=== PATIENT | male | born 1945 | race Caucasian/White ===

== ENCOUNTER 2018-10-23 07:49 | Inpatient (IN) ==
[2018-10-23] MEDS ORDERED: SODIUM CHLORIDE 0.9% 2,250 ML IV ONE (08:11)
[2018-10-23 08:54] LABS: ABG Base Excess -8.1 MMOL/L (-2.5-2.5); ABG Oxygen Saturation 98.2 % (95-100); ABG PCO2 47.6 MM HG (35-48); ABG PH 7.229 (7.35-7.45); ABG TCO2 17.7 MMOL/L (23-27); Allen Test Positive
[2018-10-23 09:01] LABS: Basophils % 0.2 % (0.0-0.8); Hematocrit 48.5 VOL% (42.0-52.0); Hemoglobin 14.9 GM/DL (14.0-18.0); Immature Granulocytes % 0.9 %; Immature Granulocytes Absolute 0.12 #; Lymphocytes # 0.5 10*3/uL (1.4-4.0); Lymphocytes % 3.6 % (21.2-54.2); Mean Corpuscular HGB Conc 30.7 GM/DL (32-36); Mean Corpuscular Volume 94.7 FL (87-102); Mean Platelet Volume 13.6 FL (9.6-12.0); Monocytes % 3.7 % (1.7-12.7); Neutrophils % 91.6 % (38.7-73.9); Platelet Count 121 T/CUMM (130-400); Red Blood Count 5.12 MC/CUMM (3.8-5.5); Red Cell Distribution Width 15.1 % (9.3-17.3); White Blood Count 12.7 T/CUMM (4-12)
[2018-10-23 09:05] LABS: Apearance,Urine CLOUDY (Clear); Bacteria,Urine Occasional /HPF (Few); Bilirubin,Urine Negative (Negative); Blood, Urine Small mg/dL (Negative); Glucose,Urine (UA) Negative (Negative); Hyaline Casts,Urine 1 /LPF (0-3); Ketones,Urine 5 mg/dL (Negative); Mucus,Urine Occasional /LPF (Occasional); Nitrite,Urine Negative (Negative); Protein,Urine 100 MG/DL; RBC,Urine 8 /HPF (0-4); Urine Color Amber (Yellow); Urine Urobilinogen < 2.0 EU/DL (0.2-1.0); WBC,Urine 6 /HPF (0-6)
[2018-10-23 09:11] LABS: INR 1.2; PT Patient Result 13.4 SECS; Partial Thromboplastin Time 34.5 SECS (0-40)
[2018-10-23 09:21] LABS: Alanine Aminotransferase 23 U/L (16-61); Albumin 2.5 G/DL (3.4-5.0); Alkaline Phosphatase 38 U/L (45-117); Aspartate Amino Transferase 26 U/L (0-37); Blood Urea Nitrogen 51 MG/DL (7-18); Calcium 8.5 MG/DL (8.5-10.1); Glucose 76 MG/DL (74-106); Osmolality,Calculated 300.7 MOS/KG (273-304); Total Protein 6.1 G/DL (6.4-8.3)
[2018-10-23 09:25] LABS: Band Neutrophils 15 % (0-10); Burr Cells Slight; Hypochromasia 1+; Lymphocytes 5 % (20-55); Myelocytes 1 %; Ovalocytes Slight; Platelet Estimate Decreased; Segmented Neutrophils 76 % (50-85); Total Cells Counted 100
[2018-10-23] MEDS ORDERED: NOREPINEPHRINE 4 MG/4 ML VIAL IV ONE (09:28)
[2018-10-23] MEDS ORDERED: HYDROCORTISONE 100 MG VIAL IV STA (09:37)
[2018-10-23] MEDS: NOREPINEPHRINE 8 MG in SODIUM CHLORIDE 0.9% 242 ML IV PRN ×2 (09:38→21:52)
[2018-10-23] MEDS: PIPERACILLIN/TAZOBACTAM 3,375 MG in SODIUM CHLORIDE 0.9% 100 ML IV SCH ×2 (09:38→16:43)
[2018-10-23] MEDS ORDERED: NICOTINE 21 MG/24 HR PATCH TRANSDERM PRN (09:51)
[2018-10-23] MEDS ORDERED: ONDANSETRON 4 MG/2 ML VIAL IV PRN (09:51)
[2018-10-23] MEDS ORDERED: ACETAMINOPHEN 325 MG TABLET PO PRN (09:51)
[2018-10-23] MEDS ORDERED: ALBUTEROL 2.5 MG/3 ML NEB RESP TX PRN (09:51)
[2018-10-23] MEDS ORDERED: PROMETHAZINE 25 MG/1 ML VIAL IM PRN (09:51)
[2018-10-23] MEDS ORDERED: PIPERACILLIN/TAZOBACTAM 3,375 MG in SODIUM CHLORIDE 0.9% 100 ML IV SCH (10:00)
[2018-10-23] MEDS ORDERED: SODIUM CHLOR 0.9% KCL 40 MEQ 40 MEQ/1,000 ML BAG IV SCH (10:00)
[2018-10-23] MEDS ORDERED: PANTOPRAZOLE 40 MG VIAL IV SCH (10:00)
[2018-10-23] MEDS: POTASSIUM CHLORIDE RIDER 10 MEQ in PREMIX 1 EACH IV PRN ×5 (12:09→20:05)
[2018-10-23] MEDS: SODIUM BICARB INJ 100 MEQ in DEXTROSE 5% 1,000 ML IV SCH ×3 (12:18→19:52)
[2018-10-23] MEDS: FAMOTIDINE 20 MG/2 ML VIAL IV SCH ×2 (12:26→13:27)
[2018-10-23 12:38] LABS: Calcium 8.1 MG/DL (8.5-10.1); Osmolality,Calculated 302.6 MOS/KG (273-304)
[2018-10-23] MEDS ORDERED: HEPARIN/NACL 0.9% 2 UNITS/ML 500 ML IV ONE (13:23)
[2018-10-23] MEDS: HYDROCORTISONE 100 MG VIAL IV SCH ×2 (13:27→22:23)
[2018-10-23 14:19] LABS: ABG Base Excess -6.6 MMOL/L (-2.5-2.5); ABG HCO3 19.7 MMOL/L (20-26); ABG PCO2 42.5 MM HG (35-48); ABG PH 7.285 (7.35-7.45); ABG TCO2 21.1 MMOL/L (23-27)
[2018-10-23 20:49] LABS: Calcium 7.8 MG/DL (8.5-10.1); Osmolality,Calculated 302.1 MOS/KG (273-304)
[2018-10-23 21:20] LABS: ABG Base Excess -4.8 MMOL/L (-2.5-2.5); ABG HCO3 20.6 MMOL/L (20-26); ABG PCO2 44.2 MM HG (35-48); ABG PH 7.301 (7.35-7.45); Basophils # 0.1 10*3/uL (0.0-0.2); Basophils % 0.6 % (0.0-0.8); Hematocrit 43.7 VOL% (42.0-52.0); Hemoglobin 13.8 GM/DL (14.0-18.0); Immature Granulocytes % 0.6 %; Immature Granulocytes Absolute 0.05 #; Lymphocytes # 0.4 10*3/uL (1.4-4.0); Lymphocytes % 4.3 % (21.2-54.2); Mean Corpuscular HGB Conc 31.6 GM/DL (32-36); Mean Corpuscular Volume 92.4 FL (87-102); Mean Platelet Volume 12.7 FL (9.6-12.0); Monocytes % 2.7 % (1.7-12.7); Neutrophils % 91.8 % (38.7-73.9); Platelet Count 142 T/CUMM (130-400); Red Blood Count 4.73 MC/CUMM (3.8-5.5); Red Cell Distribution Width 15.1 % (9.3-17.3); White Blood Count 8.1 T/CUMM (4-12)
[2018-10-23 22:16] LABS: Anisocytosis Slight; Band Neutrophils 1 % (0-10); Burr Cells Few; Lymphocytes 4 % (20-55); Microcytosis Slight; Segmented Neutrophils 94 % (50-85); Total Cells Counted 100
[2018-10-23 22:17] LABS: Ovalocytes Slight; Platelet Estimate Normal
[2018-10-23] MEDS: ENOXAPARIN 30 MG/0.3 ML SYRINGE SUBCUT SCH (22:22)
[2018-10-23] MEDS ORDERED: SODIUM ACETATE 150 MEQ in STERILE WATER INJ 1,000 ML IV ONE (22:30)
[2018-10-24] MEDS: PIPERACILLIN/TAZOBACTAM 3,375 MG in SODIUM CHLORIDE 0.9% 100 ML IV SCH ×3 (00:08→17:44)
[2018-10-24] MEDS ORDERED: MORPHINE 4 MG/1 ML VIAL IV ONE (00:40)
[2018-10-24] MEDS: SODIUM BICARB INJ 100 MEQ in DEXTROSE 5% 1,000 ML IV SCH ×3 (03:11→17:52)
[2018-10-24 04:32] LABS: ABG Base Excess 0.5 MMOL/L (-2.5-2.5); ABG HCO3 24.9 MMOL/L (20-26); ABG Oxygen Saturation 99.2 % (95-100); ABG PCO2 37.9 MM HG (35-48); ABG PH 7.423 (7.35-7.45); ABG TCO2 21.3 MMOL/L (23-27)
[2018-10-24 04:43] LABS: Basophils # 0.1 10*3/uL (0.0-0.2); Basophils % 0.5 % (0.0-0.8); Hematocrit 41.2 VOL% (42.0-52.0); Hemoglobin 13.7 GM/DL (14.0-18.0); Immature Granulocytes % 0.5 %; Immature Granulocytes Absolute 0.06 #; Lymphocytes # 0.3 10*3/uL (1.4-4.0); Mean Corpuscular HGB Conc 33.3 GM/DL (32-36); Mean Corpuscular Volume 89.2 FL (87-102); Mean Platelet Volume 13.3 FL (9.6-12.0); Monocytes % 2.4 % (1.7-12.7); Neutrophils % 93.6 % (38.7-73.9); Platelet Count 146 T/CUMM (130-400); Red Blood Count 4.62 MC/CUMM (3.8-5.5); Red Cell Distribution Width 14.9 % (9.3-17.3); White Blood Count 11.2 T/CUMM (4-12)
[2018-10-24 04:57] LABS: INR 1.1; PT Patient Result 11.4 SECS
[2018-10-24 05:06] LABS: Calcium 7.7 MG/DL (8.5-10.1); Osmolality,Calculated 304.1 MOS/KG (273-304)
[2018-10-24 05:51] LABS: Lymphocytes 5 % (20-55); Segmented Neutrophils 94 % (50-85); Total Cells Counted 100
[2018-10-24 05:52] LABS: Anisocytosis Slight; Burr Cells Few; Microcytosis Slight
[2018-10-24 05:54] LABS: Platelet Estimate Normal; Spherocytes Slight
[2018-10-24] MEDS: HYDROCORTISONE 100 MG VIAL IV SCH ×3 (06:08→21:55)
[2018-10-24] MEDS: NOREPINEPHRINE 8 MG in SODIUM CHLORIDE 0.9% 242 ML IV PRN (06:14)
[2018-10-24] MEDS ORDERED: POTASSIUM CHLORIDE RIDER 100 ML IV ONE ×2 (08:05→08:06)
[2018-10-24] MEDS: POTASSIUM CHLORIDE RIDER 20 MEQ in PREMIX 1 EACH IV PRN ×4 (08:28→21:37)
[2018-10-24] MEDS: POTASSIUM CHLORIDE RIDER 10 MEQ in PREMIX 1 EACH IV PRN ×2 (12:40→23:56)
[2018-10-24] MEDS: FAMOTIDINE 20 MG/2 ML VIAL IV SCH (17:39)
[2018-10-24] MEDS: ENOXAPARIN 30 MG/0.3 ML SYRINGE SUBCUT SCH (21:54)
[2018-10-25] MEDS: PIPERACILLIN/TAZOBACTAM 3,375 MG in SODIUM CHLORIDE 0.9% 100 ML IV SCH ×3 (02:21→16:09)
[2018-10-25] MEDS: SODIUM BICARB INJ 100 MEQ in DEXTROSE 5% 1,000 ML IV SCH (02:26)
[2018-10-25] MEDS: HYDROCORTISONE 100 MG VIAL IV SCH ×3 (05:05→21:39)
[2018-10-25 05:10] LABS: Basophils % 0.3 % (0.0-0.8); Hematocrit 38.6 VOL% (42.0-52.0); Hemoglobin 12.6 GM/DL (14.0-18.0); Immature Granulocytes % 1.1 %; Lymphocytes # 0.4 10*3/uL (1.4-4.0); Lymphocytes % 4.7 % (21.2-54.2); Mean Corpuscular HGB Conc 32.6 GM/DL (32-36); Mean Platelet Volume 13.1 FL (9.6-12.0); Monocytes % 2.8 % (1.7-12.7); Neutrophils % 91.1 % (38.7-73.9); Platelet Count 88 T/CUMM (130-400); Red Blood Count 4.29 MC/CUMM (3.8-5.5); Red Cell Distribution Width 14.5 % (9.3-17.3); White Blood Count 8.9 T/CUMM (4-12)
[2018-10-25 05:38] LABS: Osmolality,Calculated 297.1 MOS/KG (273-304)
[2018-10-25 06:03] LABS: Band Neutrophils 2 % (0-10); Lymphocytes 4 % (20-55); Segmented Neutrophils 91 % (50-85); Total Cells Counted 100
[2018-10-25 06:04] LABS: Anisocytosis 1+; Platelet Estimate Decreased
[2018-10-25] MEDS: POTASSIUM CHLORIDE RIDER 20 MEQ in PREMIX 1 EACH IV PRN ×4 (06:30→16:27)
[2018-10-25] MEDS: SODIUM CHLORIDE 0.45% 1,000 ML IV SCH ×2 (08:23→18:13)
[2018-10-25] MEDS: FAMOTIDINE 20 MG/2 ML VIAL IV SCH (13:24)
[2018-10-25 13:39] LABS: Calcium 8.3 MG/DL (8.5-10.1); Osmolality,Calculated 287.4 MOS/KG (273-304)
[2018-10-25] MEDS: ENOXAPARIN 30 MG/0.3 ML SYRINGE SUBCUT SCH (21:42)
[2018-10-26] MEDS ORDERED: POTASSIUM CHLORIDE RIDER 10 MEQ in PREMIX 1 EACH IV PRN (01:19)
[2018-10-26] MEDS: PIPERACILLIN/TAZOBACTAM 3,375 MG in SODIUM CHLORIDE 0.9% 100 ML IV SCH ×3 (02:55→20:18)
[2018-10-26] MEDS: POTASSIUM CHLORIDE RIDER 20 MEQ in PREMIX 1 EACH IV PRN ×2 (02:55→05:03)
[2018-10-26] MEDS: HYDROCORTISONE 100 MG VIAL IV SCH ×3 (05:02→20:14)
[2018-10-26 05:26] LABS: Basophils % 0.3 % (0.0-0.8); Hematocrit 37.7 VOL% (42.0-52.0); Hemoglobin 12.6 GM/DL (14.0-18.0); Immature Granulocytes % 1.2 %; Immature Granulocytes Absolute 0.12 #; Lymphocytes % 9.9 % (21.2-54.2); Mean Corpuscular HGB Conc 33.4 GM/DL (32-36); Mean Corpuscular Volume 88.1 FL (87-102); Mean Platelet Volume 12.9 FL (9.6-12.0); Monocytes % 4.9 % (1.7-12.7); Neutrophils % 83.7 % (38.7-73.9); Platelet Count 97 T/CUMM (130-400); Red Blood Count 4.28 MC/CUMM (3.8-5.5); Red Cell Distribution Width 14.7 % (9.3-17.3)
[2018-10-26 05:48] LABS: Band Neutrophils 1 % (0-10); Hypochromasia Slight; Lymphocytes 12 % (20-55); Microcytosis Slight; Platelet Estimate Decreased; Segmented Neutrophils 83 % (50-85); Total Cells Counted 100
[2018-10-26 06:09] LABS: Bilirubin,Total 0.8 MG/DL (0.2-1.0); Calcium 8.4 MG/DL (8.5-10.1); Total Protein 5.1 G/DL (6.4-8.3)
[2018-10-26] MEDS: FLUTICASONE 50 MCG NASAL SPRAY 16 GM BOTTLE BOTH NARES SCH (12:52)
[2018-10-26] MEDS: FAMOTIDINE 20 MG/2 ML VIAL IV SCH (14:18)
[2018-10-26] MEDS: SODIUM CHLORIDE 0.45% 1,000 ML IV SCH ×2 (17:05→17:59)
[2018-10-26] MEDS: POTASSIUM CHLORIDE 20 MEQ TABLET PO SCH ×3 (17:05→22:58)
[2018-10-26] MEDS: MONTELUKAST 10 MG TABLET PO SCH (20:16)
[2018-10-26] MEDS: ENOXAPARIN 30 MG/0.3 ML SYRINGE SUBCUT SCH (20:19)
[2018-10-27] MEDS: HYDROCORTISONE 100 MG VIAL IV SCH ×2 (04:57→18:21)
[2018-10-27] MEDS: PIPERACILLIN/TAZOBACTAM 3,375 MG in SODIUM CHLORIDE 0.9% 100 ML IV SCH ×3 (04:58→20:51)
[2018-10-27] MEDS: SODIUM CHLORIDE 0.45% 1,000 ML IV SCH ×2 (05:11→11:03)
[2018-10-27 06:18] LABS: Calcium 8.8 MG/DL (8.5-10.1); Osmolality,Calculated 291.8 MOS/KG (273-304)
[2018-10-27] MEDS: LACTATED RINGERS 1,000 ML IV SCH ×2 (11:04→21:06)
[2018-10-27] MEDS: FLUTICASONE 50 MCG NASAL SPRAY 16 GM BOTTLE BOTH NARES SCH (11:05)
[2018-10-27] MEDS ORDERED: cefOXitin 2,000 MG in SYRINGE 1 EACH IV ONE (13:26)
[2018-10-27] MEDS ORDERED: TISSUE ADHESIVE 1 EACH APPLICATOR TOP ONE (14:05)
[2018-10-27] MEDS: FAMOTIDINE 20 MG/2 ML VIAL IV SCH ×2 (14:05→18:24)
[2018-10-27] MEDS: ENOXAPARIN 40 MG/0.4 ML SYRINGE SUBCUT SCH (14:05)
[2018-10-27] MEDS ORDERED: BUPIVACAINE MPF 0.25% /EPI 30 ML VIAL ONE (14:05)
[2018-10-27] MEDS ORDERED: LIDOCAINE 1%/EPI INJ 20 ML VIAL ONE (14:06)
[2018-10-27] MEDS ORDERED: PHENYLEPHRINE 1 MG/10 ML SYRINGE IV ONE (14:10)
[2018-10-27] MEDS ORDERED: PHENYLEPHRINE DRIP 20 MG/250 ML PREMIX IV ONE (14:10)
[2018-10-27] MEDS ORDERED: HEPARIN/NACL 0.9% 2 UNITS/ML 500 ML IV ONE (14:17)
[2018-10-27] MEDS ORDERED: NOREPINEPHRINE 4 MG/4 ML VIAL IV ONE (16:53)
[2018-10-27] MEDS ORDERED: NOREPINEPHRINE 8 MG in SODIUM CHLORIDE 0.9% 242 ML IV PRN (17:00)
[2018-10-27] MEDS ORDERED: ETOMIDATE 40 MG/20 ML VIAL IV ONE (17:28)
[2018-10-27] MEDS ORDERED: SEVOFLURANE 1 UNIT/15 MINUTE INH ONE (17:28)
[2018-10-27] MEDS ORDERED: ROCURONIUM 100 MG/10 ML VIAL IV ONE (17:29)
[2018-10-27] MEDS ORDERED: LACTATED RINGERS 1,000 ML IV ONE ×3 (17:29→17:53)
[2018-10-27] MEDS ORDERED: MIDAZOLAM 2 MG/2 ML VIAL ONE (17:31)
[2018-10-27] MEDS ORDERED: EPINEPHrine 1 MG/10 ML SYRINGE ONE (17:33)
[2018-10-27 17:57] LABS: ABG Base Excess 4.5 MMOL/L (-2.5-2.5); ABG HCO3 28.3 MMOL/L (20-26); ABG Oxygen Saturation 92.2 % (95-100); ABG PCO2 36.1 MM HG (35-48); ABG PH 7.492 (7.35-7.45); ABG PO2 63.9 MM HG (80-95)
[2018-10-27] MEDS: dilTIAZem Drip 125 MG/125 ML PREMIX IV SCH (18:06)
[2018-10-27 18:15] LABS: Calcium 7.8 MG/DL (8.5-10.1); Osmolality,Calculated 293.7 MOS/KG (273-304)
[2018-10-27] MEDS: PROPOFOL 1,000 MG/100 ML BOTTLE IV SCH (18:22)
[2018-10-27 18:29] LABS: Basophils # 0.1 10*3/uL (0.0-0.2); Basophils % 0.6 % (0.0-0.8); Eosinophils % 0.2 % (0.00-10.9); Hematocrit 48.6 VOL% (42.0-52.0); Immature Granulocytes % 1.1 %; Immature Granulocytes Absolute 0.13 #; Lymphocytes # 1.4 10*3/uL (1.4-4.0); Mean Corpuscular HGB Conc 31.1 GM/DL (32-36); Mean Corpuscular Volume 92.6 FL (87-102); Mean Platelet Volume 12.6 FL (9.6-12.0); Monocytes % 1.6 % (1.7-12.7); Neutrophils % 85.5 % (38.7-73.9); Red Cell Distribution Width 14.9 % (9.3-17.3); White Blood Count 12.3 T/CUMM (4-12)
[2018-10-27 18:30] LABS: Hemoglobin 15.1 GM/DL (14.0-18.0); Platelet Count 173 T/CUMM (130-400); Red Blood Count 5.25 MC/CUMM (3.8-5.5)
[2018-10-27 18:54] LABS: Troponin I 0.072 NG/ML (0.00-0.045)
[2018-10-27 18:56] LABS: Band Neutrophils 4 % (0-10); Lymphocytes 9 % (20-55); Segmented Neutrophils 87 % (50-85); Total Cells Counted 100
[2018-10-27 18:57] LABS: Anisocytosis 1+; Burr Cells 2+; Macrocytosis 1+
[2018-10-27 18:58] LABS: Platelet Estimate Normal; Poikilocytosis 1+; Polychromasia Slight
[2018-10-27] MEDS: HYDROmorphone 2 MG/1 ML VIAL IV PRN (20:51)
[2018-10-27] MEDS: MONTELUKAST 10 MG TABLET PO SCH (21:08)
[2018-10-27] MEDS ORDERED: NOREPINEPHRINE 16 MG in SODIUM CHLORIDE 0.9% 234 ML IV PRN (21:11)
[2018-10-27] MEDS ORDERED: LACTATED RINGERS 2,000 ML IV ONE (21:32)
[2018-10-28] MEDS: dilTIAZem Drip 125 MG/125 ML PREMIX IV SCH ×2 (00:52→16:41)
[2018-10-28] MEDS ORDERED: ALBUMIN 5% 50 GM in PREMIX 1 EACH IV ONE (01:00)
[2018-10-28 04:44] LABS: ABG HCO3 27.1 MMOL/L (20-26); ABG Oxygen Saturation 98.3 % (95-100); ABG TCO2 23.5 MMOL/L (23-27)
[2018-10-28 04:46] LABS: Basophils # 0.1 10*3/uL (0.0-0.2); Basophils % 0.5 % (0.0-0.8); Hematocrit 41.1 VOL% (42.0-52.0); Hemoglobin 12.9 GM/DL (14.0-18.0); Immature Granulocytes % 1.5 %; Immature Granulocytes Absolute 0.37 #; Lymphocytes # 0.9 10*3/uL (1.4-4.0); Lymphocytes % 3.6 % (21.2-54.2); Mean Corpuscular HGB Conc 31.4 GM/DL (32-36); Mean Corpuscular Volume 92.2 FL (87-102); Mean Platelet Volume 12.2 FL (9.6-12.0); Monocytes % 2.9 % (1.7-12.7); Neutrophils % 91.5 % (38.7-73.9); Platelet Count 160 T/CUMM (130-400); Red Blood Count 4.46 MC/CUMM (3.8-5.5); Red Cell Distribution Width 14.9 % (9.3-17.3); White Blood Count 25.4 T/CUMM (4-12)
[2018-10-28] MEDS: PIPERACILLIN/TAZOBACTAM 3,375 MG in SODIUM CHLORIDE 0.9% 100 ML IV SCH ×3 (04:50→20:32)
[2018-10-28] MEDS: HYDROCORTISONE 100 MG VIAL IV SCH ×2 (04:50→17:46)
[2018-10-28 05:06] LABS: Albumin 2.5 G/DL (3.4-5.0); Bilirubin,Total 1.9 MG/DL (0.2-1.0); Calcium 8.1 MG/DL (8.5-10.1); Total Protein 4.5 G/DL (6.4-8.3)
[2018-10-28 05:25] LABS: Lymphocytes 3 % (20-55); Segmented Neutrophils 94 % (50-85); Total Cells Counted 100
[2018-10-28 05:26] LABS: Hypochromasia Slight; Microcytosis Slight; Ovalocytes Slight; Platelet Estimate Adequate
[2018-10-28] MEDS ORDERED: LACTATED RINGERS 1,000 ML IV ONE (05:51)
[2018-10-28] MEDS: LACTATED RINGERS 1,000 ML IV SCH ×3 (07:04→21:00)
[2018-10-28] MEDS: FLUTICASONE 50 MCG NASAL SPRAY 16 GM BOTTLE BOTH NARES SCH (09:45)
[2018-10-28] MEDS ORDERED: MAGNESIUM SULF RIDER 2 GM in PREMIX 1 EACH IV ONE (10:55)
[2018-10-28] MEDS ORDERED: LEVOFLOXACIN INJ 500 MG in PREMIX 1 EACH IV SCH (11:00)
[2018-10-28] MEDS ORDERED: LEVOFLOXACIN INJ 750 MG in PREMIX 1 EACH IV ONE (11:02)
[2018-10-28] MEDS: PROPOFOL 1,000 MG/100 ML BOTTLE IV SCH ×2 (11:25→20:33)
[2018-10-28] MEDS: FAMOTIDINE 20 MG/2 ML VIAL IV SCH (14:03)
[2018-10-28] MEDS: ENOXAPARIN 40 MG/0.4 ML SYRINGE SUBCUT SCH (14:03)
[2018-10-28] MEDS: MONTELUKAST 10 MG TABLET PO SCH (20:32)
[2018-10-29] MEDS: dilTIAZem Drip 125 MG/125 ML PREMIX IV SCH (02:59)
[2018-10-29] MEDS: LACTATED RINGERS 1,000 ML IV SCH ×3 (03:30→11:02)
[2018-10-29 04:45] LABS: ABG Base Excess 3.5 MMOL/L (-2.5-2.5); ABG HCO3 27.6 MMOL/L (20-26); ABG Oxygen Saturation 99.4 % (95-100); ABG PCO2 42.1 MM HG (35-48); ABG PH 7.433 (7.35-7.45); ABG TCO2 25.4 MMOL/L (23-27)
[2018-10-29 04:51] LABS: Basophils % 0.2 % (0.0-0.8); Eosinophils % 0.1 % (0.00-10.9); Hematocrit 33.4 VOL% (42.0-52.0); Hemoglobin 10.4 GM/DL (14.0-18.0); Immature Granulocytes % 1.2 %; Immature Granulocytes Absolute 0.21 #; Lymphocytes % 5.8 % (21.2-54.2); Mean Corpuscular HGB Conc 31.1 GM/DL (32-36); Mean Platelet Volume 12.3 FL (9.6-12.0); Monocytes % 3.3 % (1.7-12.7); Neutrophils % 89.4 % (38.7-73.9); Platelet Count 140 T/CUMM (130-400); Red Blood Count 3.63 MC/CUMM (3.8-5.5); Red Cell Distribution Width 14.9 % (9.3-17.3)
[2018-10-29] MEDS: PIPERACILLIN/TAZOBACTAM 3,375 MG in SODIUM CHLORIDE 0.9% 100 ML IV SCH ×3 (05:00→21:48)
[2018-10-29] MEDS: PROPOFOL 1,000 MG/100 ML BOTTLE IV SCH ×3 (05:02→16:54)
[2018-10-29 05:19] LABS: Calcium 7.9 MG/DL (8.5-10.1); Osmolality,Calculated 289.7 MOS/KG (273-304)
[2018-10-29 05:34] LABS: Band Neutrophils 2 % (0-10); Hypochromasia 2+; Lymphocytes 4 % (20-55); Platelet Estimate Decreased; Segmented Neutrophils 90 % (50-85); Total Cells Counted 100
[2018-10-29] MEDS: POTASSIUM CHLORIDE RIDER 20 MEQ in PREMIX 1 EACH IV PRN ×2 (06:02→08:49)
[2018-10-29] MEDS: FLUTICASONE 50 MCG NASAL SPRAY 16 GM BOTTLE BOTH NARES SCH (08:44)
[2018-10-29] MEDS: DILTIAZEM 30 MG TABLET PO SCH ×3 (13:32→22:08)
[2018-10-29] MEDS: FAMOTIDINE 20 MG/2 ML VIAL IV SCH (13:33)
[2018-10-29] MEDS: ENOXAPARIN 40 MG/0.4 ML SYRINGE SUBCUT SCH (13:34)
[2018-10-29] MEDS: POTASSIUM CHLORIDE RIDER 10 MEQ in PREMIX 1 EACH IV PRN (15:41)
[2018-10-29] MEDS: MONTELUKAST 10 MG TABLET PO SCH (22:09)
[2018-10-30] MEDS: PROPOFOL 1,000 MG/100 ML BOTTLE IV SCH ×3 (02:00→17:35)
[2018-10-30 05:00] LABS: Basophils # 0.1 10*3/uL (0.0-0.2); Basophils % 0.2 % (0.0-0.8); Eosinophils # 0.1 10*3/uL (0.0-0.87); Eosinophils % 0.3 % (0.00-10.9); Hematocrit 36.9 VOL% (42.0-52.0); Hemoglobin 11.6 GM/DL (14.0-18.0); Immature Granulocytes % 1.4 %; Lymphocytes % 4.6 % (21.2-54.2); Mean Corpuscular HGB Conc 31.4 GM/DL (32-36); Mean Corpuscular Volume 93.2 FL (87-102); Mean Platelet Volume 11.7 FL (9.6-12.0); Monocytes % 2.7 % (1.7-12.7); Neutrophils % 90.8 % (38.7-73.9); Platelet Count 222 T/CUMM (130-400); Red Blood Count 3.96 MC/CUMM (3.8-5.5); Red Cell Distribution Width 14.8 % (9.3-17.3); White Blood Count 21.8 T/CUMM (4-12)
[2018-10-30] MEDS: PIPERACILLIN/TAZOBACTAM 3,375 MG in SODIUM CHLORIDE 0.9% 100 ML IV SCH ×2 (05:19→13:01)
[2018-10-30 05:21] LABS: ABG Base Excess 1.4 MMOL/L (-2.5-2.5); ABG HCO3 25.6 MMOL/L (20-26); ABG PCO2 41.5 MM HG (35-48); ABG PH 7.407 (7.35-7.45); ABG TCO2 23.2 MMOL/L (23-27)
[2018-10-30 05:22] LABS: Band Neutrophils 1 % (0-10); Lymphocytes 6 % (20-55); Segmented Neutrophils 90 % (50-85); Total Cells Counted 100
[2018-10-30 05:23] LABS: Hypochromasia 1+; Platelet Estimate Adequate
[2018-10-30 05:32] LABS: Calcium 8.2 MG/DL (8.5-10.1); Osmolality,Calculated 288.7 MOS/KG (273-304)
[2018-10-30] MEDS: POTASSIUM CHLORIDE RIDER 20 MEQ in PREMIX 1 EACH IV PRN ×3 (06:33→18:43)
[2018-10-30] MEDS ORDERED: LIDOCAINE 1%/EPI INJ 20 ML VIAL ONE (07:27)
[2018-10-30] MEDS ORDERED: BUPIVACAINE MPF 0.25% /EPI 30 ML VIAL ONE (07:27)
[2018-10-30] MEDS ORDERED: DEXTROSE 10% 250 ML BAG IV ONE (07:50)
[2018-10-30] MEDS ORDERED: GLUCAGON 1 MG VIAL ONE (08:07)
[2018-10-30] MEDS ORDERED: DEXTROSE 10% 250 ML IV ONE ×2 (08:30→09:30)
[2018-10-30] MEDS ORDERED: ALBUMIN 5% 12.5 GM/250 ML VIAL IV ONE (09:54)
[2018-10-30] MEDS ORDERED: SEVOFLURANE 1 UNIT/15 MINUTE INH ONE (09:56)
[2018-10-30] MEDS ORDERED: MIDAZOLAM 2 MG/2 ML VIAL ONE (09:57)
[2018-10-30] MEDS ORDERED: ROCURONIUM 100 MG/10 ML VIAL IV ONE (09:57)
[2018-10-30] MEDS ORDERED: fentaNYL 100 MCG/2 ML VIAL ONE (09:57)
[2018-10-30] MEDS ORDERED: PHENYLEPHRINE 1 MG/10 ML SYRINGE IV ONE (09:57)
[2018-10-30] MEDS ORDERED: ALBUMIN 5% 25 GM in PREMIX 1 EACH IV ONE (10:15)
[2018-10-30] MEDS: DILTIAZEM 30 MG TABLET PO SCH ×4 (10:27→20:54)
[2018-10-30] MEDS: FLUTICASONE 50 MCG NASAL SPRAY 16 GM BOTTLE BOTH NARES SCH (10:36)
[2018-10-30] MEDS: POTASSIUM CHLORIDE INJ 40 MEQ in DEXTROSE 10% 1,000 ML IV SCH (11:50)
[2018-10-30] MEDS ORDERED: DEXTROSE 50% 25 GM/50 ML VIAL IV PRN (12:41)
[2018-10-30] MEDS ORDERED: GLUCAGON 1 MG VIAL IM PRN (12:41)
[2018-10-30] MEDS: FAMOTIDINE 20 MG/2 ML VIAL IV SCH (13:23)
[2018-10-30] MEDS: ENOXAPARIN 40 MG/0.4 ML SYRINGE SUBCUT SCH (13:44)
[2018-10-30] MEDS: ceFAZolin 1,000 MG in SYRINGE 1 EACH IV SCH ×2 (14:44→20:58)
[2018-10-30] MEDS ORDERED: ELECTROLYTE CONCENTRATE 20 ML, TRACE ELEMENTS (5) 1 ML, MULTIVITAMIN INJ 10 ML in STERI... IV SCH (17:00)
[2018-10-30] MEDS ORDERED: DEXTROSE 10% 1,000 ML IV PRN (17:00)
[2018-10-30] MEDS: INSULIN REGULAR 100 UNIT/ML SUBCUT SCH (19:04)
[2018-10-30] MEDS: POTASSIUM CHLORIDE RIDER 10 MEQ in PREMIX 1 EACH IV PRN (20:55)
[2018-10-30] MEDS: MONTELUKAST 10 MG TABLET PO SCH (20:55)
[2018-10-31] MEDS: INSULIN REGULAR 100 UNIT/ML SUBCUT SCH ×4 (00:33→18:53)
[2018-10-31] MEDS: POTASSIUM CHLORIDE INJ 40 MEQ in DEXTROSE 10% 1,000 ML IV SCH ×2 (01:55→16:00)
[2018-10-31] MEDS: PROPOFOL 1,000 MG/100 ML BOTTLE IV SCH ×4 (02:00→21:00)
[2018-10-31] MEDS: ceFAZolin 1,000 MG in SYRINGE 1 EACH IV SCH ×4 (03:35→21:45)
[2018-10-31 04:59] LABS: ABG Base Excess 2.7 MMOL/L (-2.5-2.5); ABG Oxygen Saturation 97.4 % (95-100); ABG PCO2 35.7 MM HG (35-48); ABG PH 7.481 (7.35-7.45); ABG PO2 96.5 MM HG (80-95); ABG TCO2 27.1 MMOL/L (23-27)
[2018-10-31 05:15] LABS: Basophils # 0.1 10*3/uL (0.0-0.2); Basophils % 0.2 % (0.0-0.8); Eosinophils # 0.1 10*3/uL (0.0-0.87); Eosinophils % 0.4 % (0.00-10.9); Hematocrit 35.3 VOL% (42.0-52.0); Hemoglobin 11.5 GM/DL (14.0-18.0); Immature Granulocytes % 1.6 %; Immature Granulocytes Absolute 0.36 #; Lymphocytes # 1.1 10*3/uL (1.4-4.0); Mean Corpuscular HGB Conc 32.6 GM/DL (32-36); Mean Corpuscular Volume 91.2 FL (87-102); Monocytes % 4.1 % (1.7-12.7); Neutrophils % 88.7 % (38.7-73.9); Platelet Count 237 T/CUMM (130-400); Red Blood Count 3.87 MC/CUMM (3.8-5.5); Red Cell Distribution Width 14.7 % (9.3-17.3); White Blood Count 22.4 T/CUMM (4-12)
[2018-10-31 05:19] LABS: Osmolality,Calculated 288.1 MOS/KG (273-304)
[2018-10-31 05:38] LABS: Microcytosis Slight; Platelet Estimate Normal
[2018-10-31 05:43] LABS: Prealbumin 6.7 MG/DL (20-40)
[2018-10-31] MEDS: HYDROmorphone 2 MG/1 ML VIAL IV PRN (08:50)
[2018-10-31] MEDS: DILTIAZEM 30 MG TABLET PO SCH ×2 (08:55→12:45)
[2018-10-31] MEDS: AMPICILLIN INJ 1,000 MG in SODIUM CHLORIDE 0.9% 100 ML IV SCH ×2 (09:02→16:30)
[2018-10-31] MEDS: FLUTICASONE 50 MCG NASAL SPRAY 16 GM BOTTLE BOTH NARES SCH (09:47)
[2018-10-31] MEDS ORDERED: POTASSIUM PHOSPHATE 30 MMOL in SODIUM CHLORIDE 0.9% 250 ML IV ONE (12:00)
[2018-10-31] MEDS ORDERED: SODIUM CHLORIDE 0.9% 1,000 ML IV ONE (13:43)
[2018-10-31] MEDS: FAMOTIDINE 20 MG/2 ML VIAL IV SCH (13:50)
[2018-10-31] MEDS: ENOXAPARIN 40 MG/0.4 ML SYRINGE SUBCUT SCH (13:53)
[2018-10-31] MEDS ORDERED: ELECTROLYTE CONCENTRATE 40 ML, TRACE ELEMENTS (5) 1 ML, MULTIVITAMIN INJ 10 ML in AMINO... IV SCH (17:00)
[2018-10-31] MEDS: MONTELUKAST 10 MG TABLET PO SCH (21:55)
[2018-10-31] MEDS ORDERED: HEPARIN/NACL 0.9% 2 UNITS/ML 500 ML IV ONE (22:05)
[2018-11-01] MEDS ORDERED: SODIUM PHOSPHATE INJ 30 MMOL in SODIUM CHLORIDE 0.9% 250 ML IV ONE
[2018-11-01] MEDS: INSULIN REGULAR 100 UNIT/ML SUBCUT SCH ×4 (00:22→18:32)
[2018-11-01] MEDS: AMPICILLIN INJ 1,000 MG in SODIUM CHLORIDE 0.9% 100 ML IV SCH ×3 (00:33→16:55)
[2018-11-01] MEDS: ceFAZolin 1,000 MG in SYRINGE 1 EACH IV SCH ×4 (03:15→21:36)
[2018-11-01 04:49] LABS: Basophils % 0.3 % (0.0-0.8); Eosinophils # 0.2 10*3/uL (0.0-0.87); Hematocrit 34.3 VOL% (42.0-52.0); Hemoglobin 10.6 GM/DL (14.0-18.0); Immature Granulocytes % 1.7 %; Immature Granulocytes Absolute 0.27 #; Lymphocytes # 0.9 10*3/uL (1.4-4.0); Lymphocytes % 5.5 % (21.2-54.2); Mean Corpuscular HGB Conc 30.9 GM/DL (32-36); Mean Corpuscular Volume 93.2 FL (87-102); Mean Platelet Volume 11.7 FL (9.6-12.0); Neutrophils % 83.5 % (38.7-73.9); Platelet Count 232 T/CUMM (130-400); Red Blood Count 3.68 MC/CUMM (3.8-5.5); Red Cell Distribution Width 14.7 % (9.3-17.3); White Blood Count 15.7 T/CUMM (4-12)
[2018-11-01 05:07] LABS: Alanine Aminotransferase 11 U/L (16-61); Albumin 1.5 G/DL (3.4-5.0); Alkaline Phosphatase 36 U/L (45-117); Aspartate Amino Transferase 12 U/L (0-37); Bilirubin,Total < 0.39 MG/DL (0.2-1.0); Blood Urea Nitrogen 14 MG/DL (7-18); Calcium 7.7 MG/DL (8.5-10.1); Glucose 160 MG/DL (74-106); Osmolality,Calculated 291.7 MOS/KG (273-304); Total Protein 4.2 G/DL (6.4-8.3)
[2018-11-01] MEDS: POTASSIUM CHLORIDE INJ 40 MEQ in DEXTROSE 10% 1,000 ML IV SCH ×2 (05:29→19:05)
[2018-11-01 06:14] LABS: ABG Base Excess 3.1 MMOL/L (-2.5-2.5); ABG HCO3 27.2 MMOL/L (20-26); ABG Oxygen Saturation 99.2 % (95-100); ABG PCO2 40.6 MM HG (35-48); ABG PH 7.439 (7.35-7.45); ABG TCO2 24.7 MMOL/L (23-27); Allen Test Positive; Pt O2 Delivery Device Ventilator
[2018-11-01] MEDS: PROPOFOL 1,000 MG/100 ML BOTTLE IV SCH ×2 (08:32→18:30)
[2018-11-01] MEDS: FLUTICASONE 50 MCG NASAL SPRAY 16 GM BOTTLE BOTH NARES SCH (09:07)
[2018-11-01] MEDS ORDERED: POTASSIUM PHOSPHATE 40 MMOL in SODIUM CHLORIDE 0.9% 250 ML IV ONE (12:00)
[2018-11-01] MEDS: ENOXAPARIN 40 MG/0.4 ML SYRINGE SUBCUT SCH (14:50)
[2018-11-01] MEDS: FAMOTIDINE 20 MG/2 ML VIAL IV SCH (14:50)
[2018-11-01] MEDS: MONTELUKAST 10 MG TABLET PO SCH (21:36)
[2018-11-01] MEDS: HYDROmorphone 2 MG/1 ML VIAL IV PRN (21:43)
[2018-11-02] MEDS: AMPICILLIN INJ 1,000 MG in SODIUM CHLORIDE 0.9% 100 ML IV SCH ×3 (01:15→16:47)
[2018-11-02] MEDS: INSULIN REGULAR 100 UNIT/ML SUBCUT SCH ×4 (01:17→18:19)
[2018-11-02 03:18] LABS: ABG Base Excess 3.7 MMOL/L (-2.5-2.5); ABG HCO3 27.2 MMOL/L (20-26); ABG Oxygen Saturation 97.8 % (95-100); ABG PH 7.484 (7.35-7.45); ABG PO2 111.9 MM HG (80-95); ABG TCO2 28.3 MMOL/L (23-27); Allen Test Positive; Pt O2 Delivery Device Ventilator
[2018-11-02] MEDS: ceFAZolin 1,000 MG in SYRINGE 1 EACH IV SCH ×4 (03:20→20:18)
[2018-11-02] MEDS: PROPOFOL 1,000 MG/100 ML BOTTLE IV SCH ×2 (06:40→16:49)
[2018-11-02] MEDS: POTASSIUM CHLORIDE INJ 40 MEQ in DEXTROSE 10% 1,000 ML IV SCH ×2 (09:15→22:55)
[2018-11-02 09:32] LABS: Basophils % 0.1 % (0.0-0.8); Eosinophils # 0.2 10*3/uL (0.0-0.87); Eosinophils % 1.2 % (0.00-10.9); Hemoglobin 9.9 GM/DL (14.0-18.0); Immature Granulocytes % 1.8 %; Immature Granulocytes Absolute 0.27 #; Lymphocytes % 6.7 % (21.2-54.2); Mean Corpuscular HGB Conc 30.9 GM/DL (32-36); Mean Corpuscular Volume 94.4 FL (87-102); Mean Platelet Volume 11.1 FL (9.6-12.0); Monocytes % 9.5 % (1.7-12.7); Neutrophils % 80.7 % (38.7-73.9); Platelet Count 245 T/CUMM (130-400); Red Blood Count 3.39 MC/CUMM (3.8-5.5); Red Cell Distribution Width 15.2 % (9.3-17.3)
[2018-11-02 10:04] LABS: Calcium 7.8 MG/DL (8.5-10.1); Osmolality,Calculated 291.6 MOS/KG (273-304)
[2018-11-02] MEDS: FLUTICASONE 50 MCG NASAL SPRAY 16 GM BOTTLE BOTH NARES SCH (10:43)
[2018-11-02] MEDS: methylPREDNISolone SOD SUC 40 MG/1 ML VIAL IV SCH ×2 (12:59→18:20)
[2018-11-02] MEDS: FAMOTIDINE 20 MG/2 ML VIAL IV SCH (13:00)
[2018-11-02] MEDS: ALBUTEROL/IPRATROPIUM 3 ML NEB RESP TX SCH ×2 (13:55→19:24)
[2018-11-02] MEDS: ENOXAPARIN 40 MG/0.4 ML SYRINGE SUBCUT SCH (14:57)
[2018-11-02] MEDS: MONTELUKAST 10 MG TABLET PO SCH (20:18)
[2018-11-02] MEDS: HYDROmorphone 2 MG/1 ML VIAL IV PRN (23:05)
[2018-11-03] MEDS: ALBUTEROL/IPRATROPIUM 3 ML NEB RESP TX SCH ×4 (00:50→19:28)
[2018-11-03] MEDS: AMPICILLIN INJ 1,000 MG in SODIUM CHLORIDE 0.9% 100 ML IV SCH ×3 (01:00→17:45)
[2018-11-03] MEDS: INSULIN REGULAR 100 UNIT/ML SUBCUT SCH ×4 (01:38→17:47)
[2018-11-03] MEDS: methylPREDNISolone SOD SUC 40 MG/1 ML VIAL IV SCH ×3 (01:40→17:46)
[2018-11-03] MEDS: ceFAZolin 1,000 MG in SYRINGE 1 EACH IV SCH ×4 (01:42→20:19)
[2018-11-03] MEDS: PROPOFOL 1,000 MG/100 ML BOTTLE IV SCH ×3 (03:55→17:36)
[2018-11-03] MEDS: HYDROmorphone 2 MG/1 ML VIAL IV PRN ×4 (04:10→20:20)
[2018-11-03 04:16] LABS: ABG Base Excess 0.9 MMOL/L (-2.5-2.5); ABG HCO3 25.1 MMOL/L (20-26); ABG Oxygen Saturation 94.1 % (95-100); ABG PCO2 54.3 MM HG (35-48); ABG PH 7.322 (7.35-7.45); ABG PO2 79.6 MM HG (80-95); Allen Test Positive; Pt O2 Delivery Device Ventilator
[2018-11-03 05:14] LABS: Basophils % 0.2 % (0.0-0.8); Hematocrit 32.5 VOL% (42.0-52.0); Hemoglobin 10.1 GM/DL (14.0-18.0); Immature Granulocytes % 1.6 %; Lymphocytes # 0.4 10*3/uL (1.4-4.0); Lymphocytes % 2.8 % (21.2-54.2); Mean Corpuscular HGB Conc 31.1 GM/DL (32-36); Mean Platelet Volume 11.7 FL (9.6-12.0); Neutrophils % 89.4 % (38.7-73.9); Platelet Count 258 T/CUMM (130-400); Red Blood Count 3.42 MC/CUMM (3.8-5.5); White Blood Count 12.9 T/CUMM (4-12)
[2018-11-03 05:27] LABS: Osmolality,Calculated 291.1 MOS/KG (273-304)
[2018-11-03 05:41] LABS: Anisocytosis 1+; Lymphocytes 3 % (20-55); Platelet Estimate Adequate; Segmented Neutrophils 93 % (50-85); Total Cells Counted 100
[2018-11-03] MEDS: FLUTICASONE 50 MCG NASAL SPRAY 16 GM BOTTLE BOTH NARES SCH (09:28)
[2018-11-03] MEDS: FAMOTIDINE 20 MG/2 ML VIAL IV SCH (14:32)
[2018-11-03] MEDS: POTASSIUM CHLORIDE INJ 40 MEQ in DEXTROSE 10% 1,000 ML IV SCH (14:32)
[2018-11-03] MEDS: ENOXAPARIN 40 MG/0.4 ML SYRINGE SUBCUT SCH (14:33)
[2018-11-03] MEDS: MONTELUKAST 10 MG TABLET PO SCH (20:22)
[2018-11-04] MEDS: PROPOFOL 1,000 MG/100 ML BOTTLE IV SCH ×2 (00:06→17:53)
[2018-11-04] MEDS: INSULIN REGULAR 100 UNIT/ML SUBCUT SCH ×4 (00:08→18:35)
[2018-11-04] MEDS: HYDROmorphone 2 MG/1 ML VIAL IV PRN ×2 (00:14→06:39)
[2018-11-04] MEDS: ALBUTEROL/IPRATROPIUM 3 ML NEB RESP TX SCH ×4 (00:29→19:15)
[2018-11-04] MEDS: AMPICILLIN INJ 1,000 MG in SODIUM CHLORIDE 0.9% 100 ML IV SCH ×3 (00:40→16:37)
[2018-11-04] MEDS: methylPREDNISolone SOD SUC 40 MG/1 ML VIAL IV SCH ×3 (03:26→18:35)
[2018-11-04] MEDS: ceFAZolin 1,000 MG in SYRINGE 1 EACH IV SCH ×4 (03:52→21:30)
[2018-11-04] MEDS: POTASSIUM CHLORIDE INJ 40 MEQ in DEXTROSE 10% 1,000 ML IV SCH ×3 (04:23→17:55)
[2018-11-04 07:31] LABS: Basophils % 0.1 % (0.0-0.8); Hematocrit 32.4 VOL% (42.0-52.0); Hemoglobin 10.1 GM/DL (14.0-18.0); Immature Granulocytes % 1.3 %; Immature Granulocytes Absolute 0.17 #; Lymphocytes # 0.4 10*3/uL (1.4-4.0); Mean Corpuscular HGB Conc 31.2 GM/DL (32-36); Mean Corpuscular Volume 94.2 FL (87-102); Mean Platelet Volume 11.6 FL (9.6-12.0); Monocytes % 3.8 % (1.7-12.7); Neutrophils % 91.8 % (38.7-73.9); Platelet Count 297 T/CUMM (130-400); Red Blood Count 3.44 MC/CUMM (3.8-5.5); Red Cell Distribution Width 14.7 % (9.3-17.3); White Blood Count 13.3 T/CUMM (4-12)
[2018-11-04 07:48] LABS: Calcium 7.8 MG/DL (8.5-10.1); Osmolality,Calculated 288.3 MOS/KG (273-304)
[2018-11-04 07:57] LABS: Anisocytosis 1+; Band Neutrophils 4 % (0-10); Lymphocytes 3 % (20-55); Platelet Estimate Normal; Poikilocytosis 1+; Segmented Neutrophils 91 % (50-85); Total Cells Counted 100
[2018-11-04] MEDS ORDERED: LABETALOL 20 MG/4 ML SYRINGE IV ONE ×2 (09:32→10:35)
[2018-11-04] MEDS: FLUTICASONE 50 MCG NASAL SPRAY 16 GM BOTTLE BOTH NARES SCH (09:34)
[2018-11-04] MEDS ORDERED: hydrALAZINE 20 MG/1 ML VIAL IV PRN (12:02)
[2018-11-04] MEDS: amLODIPine 5 MG TABLET PO SCH (12:47)
[2018-11-04] MEDS: FAMOTIDINE 20 MG/2 ML VIAL IV SCH (12:52)
[2018-11-04] MEDS ORDERED: niCARdipine 25 MG/10 ML VIAL IV ONE (13:27)
[2018-11-04] MEDS: niCARdipine INJ 25 MG in SODIUM CHLORIDE 0.9% 240 ML IV PRN ×3 (13:30→22:26)
[2018-11-04] MEDS: ENOXAPARIN 40 MG/0.4 ML SYRINGE SUBCUT SCH (14:34)
[2018-11-04] MEDS: FUROSEMIDE 40 MG/4 ML VIAL IV SCH ×2 (14:36→21:30)
[2018-11-04] MEDS: MORPHINE 4 MG/1 ML VIAL IV PRN (15:20)
[2018-11-04] MEDS ORDERED: MORPHINE 4 MG/1 ML VIAL IV ONE (19:20)
[2018-11-04] MEDS: MONTELUKAST 10 MG TABLET PO SCH (21:41)
[2018-11-05] MEDS: INSULIN REGULAR 100 UNIT/ML SUBCUT SCH ×4 (00:22→18:54)
[2018-11-05] MEDS: AMPICILLIN INJ 1,000 MG in SODIUM CHLORIDE 0.9% 100 ML IV SCH ×3 (00:22→16:52)
[2018-11-05] MEDS: methylPREDNISolone SOD SUC 40 MG/1 ML VIAL IV SCH ×3 (02:34→20:09)
[2018-11-05] MEDS: ceFAZolin 1,000 MG in SYRINGE 1 EACH IV SCH ×4 (02:36→20:09)
[2018-11-05] MEDS: FUROSEMIDE 40 MG/4 ML VIAL IV SCH ×4 (02:37→18:53)
[2018-11-05] MEDS: MORPHINE 4 MG/1 ML VIAL IV PRN ×3 (05:04→20:10)
[2018-11-05 05:06] LABS: Basophils % 0.1 % (0.0-0.8); Hematocrit 37.4 VOL% (42.0-52.0); Immature Granulocytes % 0.8 %; Lymphocytes # 0.4 10*3/uL (1.4-4.0); Lymphocytes % 3.1 % (21.2-54.2); Mean Corpuscular HGB Conc 32.1 GM/DL (32-36); Mean Corpuscular Volume 91.2 FL (87-102); Mean Platelet Volume 10.5 FL (9.6-12.0); Monocytes % 3.8 % (1.7-12.7); Neutrophils % 92.2 % (38.7-73.9); Platelet Count 378 T/CUMM (130-400); Red Cell Distribution Width 14.9 % (9.3-17.3); White Blood Count 12.5 T/CUMM (4-12)
[2018-11-05 05:27] LABS: Calcium 8.4 MG/DL (8.5-10.1); Osmolality,Calculated 291.4 MOS/KG (273-304)
[2018-11-05 05:52] LABS: Anisocytosis 1+; Lymphocytes 7 % (20-55); Ovalocytes Few; Segmented Neutrophils 91 % (50-85); Total Cells Counted 100
[2018-11-05 05:53] LABS: Platelet Estimate Adequate
[2018-11-05] MEDS: ALBUTEROL/IPRATROPIUM 3 ML NEB RESP TX SCH ×4 (07:25→20:09)
[2018-11-05] MEDS: POTASSIUM CHLORIDE INJ 40 MEQ in DEXTROSE 10% 1,000 ML IV SCH (09:06)
[2018-11-05] MEDS: amLODIPine 5 MG TABLET PO SCH (09:20)
[2018-11-05] MEDS: FLUTICASONE 50 MCG NASAL SPRAY 16 GM BOTTLE BOTH NARES SCH (09:20)
[2018-11-05] MEDS ORDERED: METOPROLOL SUCCINATE XL 50 MG TABLET PO SCH (10:38)
[2018-11-05] MEDS ORDERED: BENAZEPRIL 10 MG TABLET PO SCH (11:30)
[2018-11-05] MEDS ORDERED: ACETAMINOPHEN 650 MG SUPP RECTAL PRN (12:55)
[2018-11-05] MEDS: ENOXAPARIN 40 MG/0.4 ML SYRINGE SUBCUT SCH (14:07)
[2018-11-05] MEDS: FAMOTIDINE 20 MG/2 ML VIAL IV SCH (14:08)
[2018-11-05] MEDS: DEXT 5% NACL 0.45% KCL 20 MEQ 20 MEQ/1,000 ML BAG IV SCH ×2 (19:06→22:23)
[2018-11-06] MEDS: FUROSEMIDE 40 MG/4 ML VIAL IV SCH ×2 (00:14→06:09)
[2018-11-06] MEDS: INSULIN REGULAR 100 UNIT/ML SUBCUT SCH ×5 (00:16→23:35)
[2018-11-06] MEDS: AMPICILLIN INJ 1,000 MG in SODIUM CHLORIDE 0.9% 100 ML IV SCH ×4 (00:16→23:35)
[2018-11-06] MEDS: ALBUTEROL/IPRATROPIUM 3 ML NEB RESP TX SCH ×4 (01:07→19:08)
[2018-11-06] MEDS: ceFAZolin 1,000 MG in SYRINGE 1 EACH IV SCH ×4 (01:58→20:14)
[2018-11-06 05:04] LABS: Basophils % 0.1 % (0.0-0.8); Hematocrit 35.8 VOL% (42.0-52.0); Hemoglobin 11.7 GM/DL (14.0-18.0); Immature Granulocytes Absolute 0.11 #; Lymphocytes # 0.6 10*3/uL (1.4-4.0); Lymphocytes % 5.5 % (21.2-54.2); Mean Corpuscular HGB Conc 32.7 GM/DL (32-36); Mean Corpuscular Volume 89.9 FL (87-102); Mean Platelet Volume 11.1 FL (9.6-12.0); Monocytes % 7.7 % (1.7-12.7); Neutrophils % 85.7 % (38.7-73.9); Platelet Count 357 T/CUMM (130-400); Red Blood Count 3.98 MC/CUMM (3.8-5.5); Red Cell Distribution Width 14.7 % (9.3-17.3); White Blood Count 10.7 T/CUMM (4-12)
[2018-11-06] MEDS: DEXT 5% NACL 0.45% KCL 20 MEQ 20 MEQ/1,000 ML BAG IV SCH ×3 (05:20→20:13)
[2018-11-06 05:32] LABS: Calcium 8.4 MG/DL (8.5-10.1); Osmolality,Calculated 288.3 MOS/KG (273-304)
[2018-11-06 05:35] LABS: Prealbumin 20.7 MG/DL (20-40)
[2018-11-06] MEDS: POTASSIUM CHLORIDE RIDER 20 MEQ in PREMIX 1 EACH IV PRN (06:10)
[2018-11-06] MEDS: POTASSIUM CHLORIDE RIDER 10 MEQ in PREMIX 1 EACH IV PRN (07:01)
[2018-11-06] MEDS: methylPREDNISolone SOD SUC 40 MG/1 ML VIAL IV SCH ×2 (11:51→20:14)
[2018-11-06] MEDS: FAMOTIDINE 20 MG/2 ML VIAL IV SCH (14:41)
[2018-11-06] MEDS: ENOXAPARIN 40 MG/0.4 ML SYRINGE SUBCUT SCH (14:41)
[2018-11-06] MEDS: MORPHINE 4 MG/1 ML VIAL IV PRN (20:14)
[2018-11-07] MEDS: ALBUTEROL/IPRATROPIUM 3 ML NEB RESP TX SCH ×3 (01:33→12:12)
[2018-11-07] MEDS: ceFAZolin 1,000 MG in SYRINGE 1 EACH IV SCH ×3 (02:27→14:53)
[2018-11-07] MEDS: INSULIN REGULAR 100 UNIT/ML SUBCUT SCH ×2 (06:09→14:27)
[2018-11-07] MEDS: MORPHINE 4 MG/1 ML VIAL IV PRN (06:26)
[2018-11-07 06:33] LABS: Basophils % 0.2 % (0.0-0.8); Hematocrit 34.2 VOL% (42.0-52.0); Immature Granulocytes % 0.9 %; Immature Granulocytes Absolute 0.11 #; Lymphocytes # 0.6 10*3/uL (1.4-4.0); Lymphocytes % 4.4 % (21.2-54.2); Mean Corpuscular HGB Conc 32.2 GM/DL (32-36); Mean Corpuscular Volume 89.5 FL (87-102); Monocytes % 9.6 % (1.7-12.7); Neutrophils % 84.9 % (38.7-73.9); Platelet Count 310 T/CUMM (130-400); Red Blood Count 3.82 MC/CUMM (3.8-5.5); Red Cell Distribution Width 15.1 % (9.3-17.3); White Blood Count 12.6 T/CUMM (4-12)
[2018-11-07 07:03] LABS: Calcium 8.4 MG/DL (8.5-10.1); Osmolality,Calculated 291.3 MOS/KG (273-304)
[2018-11-07 07:07] LABS: Hypochromasia 1+; Lymphocytes 4 % (20-55); Platelet Estimate Adequate; Segmented Neutrophils 87 % (50-85); Total Cells Counted 100
[2018-11-07] MEDS: AMPICILLIN INJ 1,000 MG in SODIUM CHLORIDE 0.9% 100 ML IV SCH (09:01)
[2018-11-07] MEDS: methylPREDNISolone SOD SUC 40 MG/1 ML VIAL IV SCH (09:04)
[2018-11-07 12:44] VITALS: BP 170/95
[2018-11-07] MEDS: ENOXAPARIN 40 MG/0.4 ML SYRINGE SUBCUT SCH (14:54)
[2018-11-07] MEDS: FAMOTIDINE 20 MG/2 ML VIAL IV SCH (14:58)
== END 2018-11-07 15:40 | DRG 853 ==
LOC: EDBD → EDUNIT# → N.ED 07:49 → SUATTDRO 09:50 → N.EDINP 09:50 → N.ICU 13:17 → N.3E 10-25 18:03 → N.CC 10-27 15:14 → N.2E 11-07 00:49
PROVIDERS: ADMIT Nurse Practitioner Acute Care; ATTEND Internal Medicine

== ENCOUNTER 2018-11-08 16:58 | Observation (INO) ==
[2018-11-08] MEDS ORDERED: ACETAMINOPHEN 325 MG TABLET PO PRN (19:28)
[2018-11-08] MEDS ORDERED: HYDROmorphone 2 MG/1 ML VIAL IV PRN (19:28)
[2018-11-08] MEDS ORDERED: ONDANSETRON 4 MG/2 ML VIAL IV PRN (19:28)
[2018-11-08 19:58] LABS: Basophils % 0.1 % (0.0-0.8); Hematocrit 36.5 VOL% (42.0-52.0); Hemoglobin 11.4 GM/DL (14.0-18.0); Immature Granulocytes % 0.8 %; Immature Granulocytes Absolute 0.13 #; Lymphocytes # 0.9 10*3/uL (1.4-4.0); Lymphocytes % 5.9 % (21.2-54.2); Mean Corpuscular HGB Conc 31.2 GM/DL (32-36); Mean Corpuscular Volume 93.6 FL (87-102); Mean Platelet Volume 12.2 FL (9.6-12.0); Monocytes % 6.4 % (1.7-12.7); Neutrophils % 86.8 % (38.7-73.9); Platelet Count 178 T/CUMM (130-400); Red Cell Distribution Width 15.2 % (9.3-17.3); White Blood Count 15.7 T/CUMM (4-12)
[2018-11-08 20:19] LABS: Calcium 8.2 MG/DL (8.5-10.1)
[2018-11-08] MEDS: AMPICILLIN INJ 1,000 MG in SODIUM CHLORIDE 0.9% 100 ML IV SCH (20:48)
[2018-11-08] MEDS: LACTATED RINGERS 1,000 ML IV SCH (20:53)
[2018-11-08] MEDS: ceFAZolin 1,000 MG in SYRINGE 1 EACH IV SCH (20:55)
[2018-11-09] MEDS: AMPICILLIN INJ 1,000 MG in SODIUM CHLORIDE 0.9% 100 ML IV SCH ×3 (04:16→23:18)
[2018-11-09] MEDS: LACTATED RINGERS 1,000 ML IV SCH ×3 (04:22→21:25)
[2018-11-09] MEDS: ceFAZolin 1,000 MG in SYRINGE 1 EACH IV SCH ×3 (04:22→23:18)
[2018-11-09 04:44] LABS: Basophils % 0.2 % (0.0-0.8); Eosinophils % 0.2 % (0.00-10.9); Hematocrit 35.7 VOL% (42.0-52.0); Hemoglobin 11.1 GM/DL (14.0-18.0); Immature Granulocytes % 0.8 %; Immature Granulocytes Absolute 0.12 #; Lymphocytes # 1.4 10*3/uL (1.4-4.0); Lymphocytes % 9.2 % (21.2-54.2); Mean Corpuscular HGB Conc 31.1 GM/DL (32-36); Mean Corpuscular Volume 94.9 FL (87-102); Mean Platelet Volume 11.6 FL (9.6-12.0); Monocytes % 5.8 % (1.7-12.7); Neutrophils % 83.8 % (38.7-73.9); Platelet Count 222 T/CUMM (130-400); Red Blood Count 3.76 MC/CUMM (3.8-5.5); Red Cell Distribution Width 15.3 % (9.3-17.3); White Blood Count 15.4 T/CUMM (4-12)
[2018-11-09 05:11] LABS: Calcium 8.2 MG/DL (8.5-10.1); Osmolality,Calculated 293.7 MOS/KG (273-304)
[2018-11-09] MEDS ORDERED: POTASSIUM CHLORIDE RIDER 10 MEQ in PREMIX 1 EACH IV PRN (07:02)
[2018-11-09] MEDS ORDERED: PANTOPRAZOLE 40 MG TABLET PO SCH (09:00)
[2018-11-09] MEDS: POTASSIUM CHLORIDE RIDER 20 MEQ in PREMIX 1 EACH IV PRN ×2 (10:58→12:45)
[2018-11-09] MEDS: ENOXAPARIN 40 MG/0.4 ML SYRINGE SUBCUT SCH (11:03)
[2018-11-09] MEDS ORDERED: DEXTROSE 50% 25 GM/50 ML VIAL IV PRN (11:16)
[2018-11-09] MEDS ORDERED: GLUCAGON 1 MG VIAL IM PRN (11:16)
[2018-11-09] MEDS ORDERED: ELECTROLYTE CONCENTRATE 20 ML, TRACE ELEMENTS (5) 1 ML, MULTIVITAMIN INJ 10 ML in AMINO... IV SCH (17:00)
[2018-11-09] MEDS: INSULIN REGULAR 100 UNIT/ML SUBCUT SCH ×2 (17:59→23:42)
[2018-11-09] MEDS: FAT EMULSION 20% 250 ML IV SCH (17:59)
[2018-11-09] MEDS: POTASSIUM CHLORIDE RIDER 10 MEQ in PREMIX 1 EACH IV SCH ×4 (20:22→23:20)
[2018-11-09] MEDS: ZINC OXIDE PASTE 113 GM TUBE TOP SCH (21:25)
[2018-11-10] MEDS: ceFAZolin 1,000 MG in SYRINGE 1 EACH IV SCH ×2 (05:13→11:27)
[2018-11-10] MEDS: LACTATED RINGERS 1,000 ML IV SCH ×2 (05:15→14:54)
[2018-11-10 05:59] LABS: Calcium 7.6 MG/DL (8.5-10.1); Osmolality,Calculated 292.7 MOS/KG (273-304)
[2018-11-10] MEDS: AMPICILLIN INJ 1,000 MG in SODIUM CHLORIDE 0.9% 100 ML IV SCH ×2 (06:10→14:44)
[2018-11-10] MEDS: INSULIN REGULAR 100 UNIT/ML SUBCUT SCH ×2 (06:13→12:37)
[2018-11-10] MEDS ORDERED: METOCLOPRAMIDE 10 MG/2 ML VIAL IV SCH ×3 (06:50→19:00)
[2018-11-10] MEDS ORDERED: ALUMINUM/MAGNES/SIMETH MAX STR 30 ML UDCUP PO PRN (06:57)
[2018-11-10] MEDS ORDERED: ALBUTEROL 2.5 MG/3 ML NEB RESP TX PRN (06:57)
[2018-11-10] MEDS ORDERED: ALBUTEROL/IPRATROPIUM 3 ML NEB RESP TX PRN (06:57)
[2018-11-10 06:59] LABS: Basophils % 0.2 % (0.0-0.8); Eosinophils # 0.2 10*3/uL (0.0-0.87); Eosinophils % 0.8 % (0.00-10.9); Hematocrit 33.2 VOL% (42.0-52.0); Hemoglobin 10.5 GM/DL (14.0-18.0); Immature Granulocytes % 0.9 %; Immature Granulocytes Absolute 0.17 #; Lymphocytes # 1.3 10*3/uL (1.4-4.0); Lymphocytes % 6.5 % (21.2-54.2); Mean Corpuscular HGB Conc 31.6 GM/DL (32-36); Mean Corpuscular Volume 93.8 FL (87-102); Mean Platelet Volume 11.8 FL (9.6-12.0); Monocytes % 4.2 % (1.7-12.7); Neutrophils % 87.4 % (38.7-73.9); Platelet Count 184 T/CUMM (130-400); Red Blood Count 3.54 MC/CUMM (3.8-5.5); Red Cell Distribution Width 15.2 % (9.3-17.3); White Blood Count 19.2 T/CUMM (4-12)
[2018-11-10] MEDS ORDERED: FAMOTIDINE 20 MG/2 ML VIAL IV SCH (07:00)
[2018-11-10] MEDS: POTASSIUM CHLORIDE RIDER 10 MEQ in PREMIX 1 EACH IV SCH ×4 (07:24→11:32)
[2018-11-10] MEDS ORDERED: METOCLOPRAMIDE 10 MG TABLET PO SCH (07:30)
[2018-11-10] MEDS ORDERED: SODIUM PHOSPHATE INJ 30 MMOL in SODIUM CHLORIDE 0.9% 250 ML IV ONE (09:00)
[2018-11-10] MEDS ORDERED: PANTOPRAZOLE 40 MG VIAL IV SCH (09:00)
[2018-11-10] MEDS ORDERED: methylPREDNISolone SOD SUC 40 MG/1 ML VIAL IV SCH (09:00)
[2018-11-10] MEDS: ENOXAPARIN 40 MG/0.4 ML SYRINGE SUBCUT SCH (11:33)
[2018-11-10] MEDS: FAT EMULSION 20% 250 ML IV SCH (14:53)
[2018-11-10 15:47] VITALS: BP 134/68
[2018-11-10] MEDS: ZINC OXIDE PASTE 113 GM TUBE TOP SCH (16:22)
[2018-11-10] MEDS ORDERED: DEXTROSE 10% 1,000 ML IV PRN (17:00)
[2018-11-10] MEDS ORDERED: AMINO ACIDS 10% IV SCH (17:00)
[2018-11-10] MEDS ORDERED: STERILE WATER IV SCH (17:00)
[2018-11-10] MEDS ORDERED: ELECTROLYTE CONCENTRATE 40 ML, TRACE ELEMENTS (5) 1 ML, MULTIVITAMIN INJ 10 ML, POTASSI... IV SCH (17:00)
[2018-11-10] MEDS ORDERED: DEXTROSE 70% IV SCH (17:00)
[2018-11-10] MEDS ORDERED: MONTELUKAST 10 MG TABLET PO SCH (21:00)
== END 2018-11-10 17:05 ==
LOC: SUPCPDRO 17:47 → INTOOBSV 18:48 → N.3E 18:48
PROVIDERS: ADMIT Surgery; ATTEND Surgery

== ENCOUNTER 2020-05-08 10:37 | Inpatient (IN) ==
[2020-05-08] MEDS ORDERED: SODIUM CHLORIDE 0.9% 1,000 ML IV STA (11:24)
[2020-05-08 11:33] LABS: Basophils % 0.2 % (0.0-0.8); Eosinophils # 0.1 10*3/uL (0.0-0.87); Eosinophils % 0.5 % (0.00-10.9); Hematocrit 42.4 VOL% (42.0-52.0); Hemoglobin 14.4 GM/DL (14.0-18.0); Immature Granulocytes % 0.3 %; Immature Granulocytes Absolute 0.04 #; Lymphocytes % 8.2 % (21.2-54.2); Mean Corpuscular Volume 85.3 FL (87-102); Mean Platelet Volume 13.9 FL (9.6-12.0); Monocytes % 8.8 % (1.7-12.7); Platelet Count 73 T/CUMM (130-400); Red Blood Count 4.97 MC/CUMM (3.8-5.5); Red Cell Distribution Width 15.8 % (9.3-17.3); White Blood Count 12.7 T/CUMM (4-12)
[2020-05-08 11:51] LABS: Albumin 3.6 G/DL (3.4-5.0); Bilirubin,Total 0.6 MG/DL (0.2-1.0); Calcium 9.5 MG/DL (8.5-10.1); Hypochromasia 1+; Osmolality,Calculated 279.4 MOS/KG (273-304); Ovalocytes Slight; Total Protein 7.3 G/DL (6.4-8.3)
[2020-05-08 11:52] LABS: Anisocytosis 1+; Platelet Estimate Decreased
[2020-05-08] MEDS ORDERED: GLUCAGON 1 MG VIAL IM PRN (12:32)
[2020-05-08] MEDS ORDERED: ACETAMINOPHEN 325 MG TABLET PO PRN (12:32)
[2020-05-08] MEDS ORDERED: ONDANSETRON 4 MG/2 ML VIAL IV PRN (12:32)
[2020-05-08] MEDS ORDERED: DEXTROSE 50% 25 GM/50 ML VIAL IV PRN (12:32)
[2020-05-08] MEDS: SODIUM CHLORIDE 0.9% 1,000 ML IV SCH (15:42)
[2020-05-08] MEDS ORDERED: INFLUENZA VIRUS VACCINE 0.5 ML SYRINGE IM ONE (16:29)
[2020-05-08] MEDS: INSULIN LISPRO 100 UNIT/ML SUBCUT SCH ×2 (17:59→23:08)
[2020-05-09] MEDS: SODIUM CHLORIDE 0.9% 1,000 ML IV SCH ×4 (02:52→22:26)
[2020-05-09 07:05] LABS: Basophils % 0.1 % (0.0-0.8); Eosinophils # 0.1 10*3/uL (0.0-0.87); Eosinophils % 1.3 % (0.00-10.9); Hematocrit 34.9 VOL% (42.0-52.0); Immature Granulocytes % 0.3 %; Immature Granulocytes Absolute 0.03 #; Lymphocytes # 1.2 10*3/uL (1.4-4.0); Lymphocytes % 12.7 % (21.2-54.2); Mean Corpuscular HGB Conc 33.2 GM/DL (32-36); Mean Corpuscular Volume 87.3 FL (87-102); Mean Platelet Volume 14.1 FL (9.6-12.0); Monocytes % 12.6 % (1.7-12.7); Red Cell Distribution Width 15.7 % (9.3-17.3); White Blood Count 9.1 T/CUMM (4-12)
[2020-05-09 07:07] LABS: Platelet Count 54 T/CUMM (130-400)
[2020-05-09 07:08] LABS: Hemoglobin 11.6 GM/DL (14.0-18.0)
[2020-05-09 07:13] LABS: Hypochromasia 1+
[2020-05-09 07:14] LABS: Acanthocytes Few; Microcytosis Slight; Ovalocytes Slight; Platelet Estimate Decreased
[2020-05-09 07:16] LABS: Albumin 2.7 G/DL (3.4-5.0); Bilirubin,Total 0.4 MG/DL (0.2-1.0); Calcium 8.6 MG/DL (8.5-10.1); Osmolality,Calculated 286.5 MOS/KG (273-304); Total Protein 5.5 G/DL (6.4-8.3)
[2020-05-09] MEDS: INSULIN LISPRO 100 UNIT/ML SUBCUT SCH ×4 (07:40→20:53)
[2020-05-09] MEDS: PANTOPRAZOLE 40 MG TABLET PO SCH (08:51)
[2020-05-09] MEDS: PSYLLIUM POWDER 3.7 GM/PACK PO SCH ×2 (10:05→20:54)
[2020-05-09] MEDS: METOCLOPRAMIDE 10 MG/10 ML UDCUP PO SCH ×3 (13:11→20:53)
[2020-05-10] MEDS: SODIUM CHLORIDE 0.9% 1,000 ML IV SCH ×3 (07:22→14:41)
[2020-05-10] MEDS: INSULIN LISPRO 100 UNIT/ML SUBCUT SCH ×3 (07:53→16:31)
[2020-05-10] MEDS: METOCLOPRAMIDE 10 MG/10 ML UDCUP PO SCH ×3 (08:50→17:56)
[2020-05-10] MEDS: PSYLLIUM POWDER 3.7 GM/PACK PO SCH (08:50)
[2020-05-10] MEDS: PANTOPRAZOLE 40 MG TABLET PO SCH (08:50)
[2020-05-10 16:31] VITALS: BP 138/76
[2020-05-14 14:22] LABS: Norovirus G1 PCR Negative (Negative); Norovirus G2 PCR Negative (Negative)
== END 2020-05-10 17:30 | disposition home or self-care (01) | DRG 683 ==
LOC: N.ED 10:37 → N.EDINP 12:32 → SUATTDRO 12:32 → N.EDINP 16:10 → N.3E 16:14
PROVIDERS: ADMIT Internal Medicine; ATTEND Emergency Medicine

== ENCOUNTER 2020-06-10 08:16 | Inpatient (IN) ==
[2020-06-10] MEDS ORDERED: SODIUM CHLORIDE 0.9% 1,000 ML IV STA (08:43)
[2020-06-10 08:57] LABS: Basophils % 0.4 % (0.0-0.8); Hematocrit 37.9 VOL% (42.0-52.0); Hemoglobin 12.5 GM/DL (14.0-18.0); Lymphocytes # 1.3 10*3/uL (1.4-4.0); Lymphocytes % 11.6 % (21.2-54.2); Mean Corpuscular Volume 87.7 FL (87-102); Mean Platelet Volume 9.9 FL (9.6-12.0); Monocytes % 10.7 % (1.7-12.7); Neutrophils % 75.3 % (38.7-73.9); Platelet Count 283 T/CUMM (130-400); Red Blood Count 4.32 MC/CUMM (3.8-5.5); Red Cell Distribution Width 16.2 % (9.3-17.3); White Blood Count 11.3 T/CUMM (4-12)
[2020-06-10 08:58] LABS: Immature Granulocytes Absolute 0.23 #; NRBC # 0.02 10*3/uL
[2020-06-10 09:13] LABS: Bilirubin,Urine Negative (Negative); Blood, Urine Negative (Negative); Glucose,Urine (UA) 50 mg/dL (Negative); Ketones,Urine Negative (Negative); Nitrite,Urine Negative (Negative); Protein,Urine Negative; RBC,Urine 29 /HPF (0-4); Squamous Epithelial Cell,Urine Occasional /HPF (0-10); Urine Appearance CLEAR (Clear); Urine Color Yellow (Yellow); Urine Specific Gravity 1.017 (1.001-1.035); WBC,Urine 7 /HPF (0-6)
[2020-06-10 09:14] LABS: PT Patient Result 11.2 SECS (9.8-11.9); Partial Thromboplastin Time 36.2 SECS (23.9-33.8)
[2020-06-10 09:17] LABS: Albumin 2.6 G/DL (3.4-5.0); Bilirubin,Total 0.8 MG/DL (0.2-1.0); Calcium 9.4 MG/DL (8.5-10.1); Osmolality,Calculated 284.3 MOS/KG (273-304); Total Protein 7.1 G/DL (6.4-8.3)
[2020-06-10] MEDS ORDERED: PIPERACILLIN/TAZOBACTAM 3,375 MG in SODIUM CHLORIDE 0.9% 100 ML IV STA (11:07)
[2020-06-10] MEDS ORDERED: DEXTROSE 50% 25 GM/50 ML VIAL IV PRN (11:32)
[2020-06-10] MEDS ORDERED: ONDANSETRON 4 MG/2 ML VIAL IV PRN (11:32)
[2020-06-10] MEDS ORDERED: GLUCAGON 1 MG VIAL IM PRN (11:32)
[2020-06-10] MEDS ORDERED: ZALEPLON 5 MG CAPSULE PO PRN (13:51)
[2020-06-10] MEDS ORDERED: ALUMINUM/MAGNES/SIMETH MAX STR 30 ML UDCUP PO PRN (13:51)
[2020-06-10] MEDS ORDERED: SODIUM CHLORIDE 0.9% 500 ML IV SCH (14:00)
[2020-06-10] MEDS ORDERED: SODIUM CHLORIDE 0.9% 1,000 ML IV SCH (14:00)
[2020-06-10] MEDS: MENTHOL/ZINC OXIDE OINT 71 GM JAR TOP SCH (17:13)
[2020-06-10] MEDS: PIPERACILLIN/TAZOBACTAM 3,375 MG in SODIUM CHLORIDE 0.9% 100 ML IV SCH (20:55)
[2020-06-10] MEDS: MIRTAZAPINE 15 MG TABLET PO SCH (21:22)
[2020-06-11] MEDS: PIPERACILLIN/TAZOBACTAM 3,375 MG in SODIUM CHLORIDE 0.9% 100 ML IV SCH ×3 (04:50→22:23)
[2020-06-11 05:41] LABS: Basophils # 0.1 10*3/uL (0.0-0.2); Basophils % 0.8 % (0.0-0.8); Eosinophils % 0.4 % (0.00-10.9); Hematocrit 35.7 VOL% (42.0-52.0); Hemoglobin 11.4 GM/DL (14.0-18.0); Immature Granulocytes % 1.7 %; Immature Granulocytes Absolute 0.13 #; Lymphocytes # 1.4 10*3/uL (1.4-4.0); Mean Corpuscular HGB Conc 31.9 GM/DL (32-36); Mean Corpuscular Volume 89.5 FL (87-102); Monocytes % 14.2 % (1.7-12.7); Neutrophils % 64.9 % (38.7-73.9); Platelet Count 225 T/CUMM (130-400); Red Blood Count 3.99 MC/CUMM (3.8-5.5); White Blood Count 7.8 T/CUMM (4-12)
[2020-06-11 06:09] LABS: Calcium 8.9 MG/DL (8.5-10.1); Osmolality,Calculated 283.3 MOS/KG (273-304); Risk Ratio 4.17; Thyroid Stimulating Hormone 2.88 uIU/ml (0.358-3.74); VLDL CHOLESTEROL 12.8 MG/DL
[2020-06-11] MEDS: MENTHOL/ZINC OXIDE OINT 71 GM JAR TOP SCH (09:11)
[2020-06-11] MEDS: POLYETHYLENE GLYCOL POWDER 17 GM PACK PO SCH (09:56)
[2020-06-11] MEDS: ESCITALOPRAM 10 MG TABLET PO SCH (09:56)
[2020-06-11] MEDS: CHOLECALCIFEROL 1,000 UNIT TABLET PO SCH (09:56)
[2020-06-11] MEDS: MIRTAZAPINE 15 MG TABLET PO SCH (22:23)
[2020-06-12] MEDS: PIPERACILLIN/TAZOBACTAM 3,375 MG in SODIUM CHLORIDE 0.9% 100 ML IV SCH ×3 (04:30→21:36)
[2020-06-12 06:01] LABS: Basophils # 0.1 10*3/uL (0.0-0.2); Basophils % 0.5 % (0.0-0.8); Eosinophils % 0.2 % (0.00-10.9); Hematocrit 35.2 VOL% (42.0-52.0); Hemoglobin 11.4 GM/DL (14.0-18.0); Immature Granulocytes % 1.7 %; Immature Granulocytes Absolute 0.16 #; Lymphocytes # 1.5 10*3/uL (1.4-4.0); Lymphocytes % 16.1 % (21.2-54.2); Mean Corpuscular HGB Conc 32.4 GM/DL (32-36); Mean Platelet Volume 9.6 FL (9.6-12.0); Monocytes % 14.4 % (1.7-12.7); Neutrophils % 67.1 % (38.7-73.9); Platelet Count 193 T/CUMM (130-400); Red Blood Count 3.91 MC/CUMM (3.8-5.5); White Blood Count 9.5 T/CUMM (4-12)
[2020-06-12 06:27] LABS: Calcium 8.7 MG/DL (8.5-10.1)
[2020-06-12] MEDS: MENTHOL/ZINC OXIDE OINT 71 GM JAR TOP SCH (10:03)
[2020-06-12] MEDS: POLYETHYLENE GLYCOL POWDER 17 GM PACK PO SCH (10:03)
[2020-06-12] MEDS: CHOLECALCIFEROL 1,000 UNIT TABLET PO SCH (10:03)
[2020-06-12] MEDS: ESCITALOPRAM 10 MG TABLET PO SCH (10:03)
[2020-06-12] MEDS: MIRTAZAPINE 15 MG TABLET PO SCH (21:36)
[2020-06-13] MEDS: PIPERACILLIN/TAZOBACTAM 3,375 MG in SODIUM CHLORIDE 0.9% 100 ML IV SCH ×3 (04:30→22:30)
[2020-06-13 06:48] LABS: Basophils # 0.1 10*3/uL (0.0-0.2); Basophils % 0.6 % (0.0-0.8); Eosinophils # 0.1 10*3/uL (0.0-0.87); Eosinophils % 0.5 % (0.00-10.9); Hematocrit 35.9 VOL% (42.0-52.0); Hemoglobin 11.2 GM/DL (14.0-18.0); Immature Granulocytes % 2.2 %; Lymphocytes # 1.4 10*3/uL (1.4-4.0); Mean Corpuscular HGB Conc 31.2 GM/DL (32-36); Mean Platelet Volume 10.1 FL (9.6-12.0); Monocytes % 11.7 % (1.7-12.7); Platelet Count 193 T/CUMM (130-400); Red Blood Count 3.86 MC/CUMM (3.8-5.5); Red Cell Distribution Width 15.9 % (9.3-17.3); White Blood Count 9.3 T/CUMM (4-12)
[2020-06-13 07:13] LABS: Calcium 8.4 MG/DL (8.5-10.1)
[2020-06-13] MEDS: POLYETHYLENE GLYCOL POWDER 17 GM PACK PO SCH (09:21)
[2020-06-13] MEDS: ESCITALOPRAM 10 MG TABLET PO SCH (09:21)
[2020-06-13] MEDS: CHOLECALCIFEROL 1,000 UNIT TABLET PO SCH (09:21)
[2020-06-13] MEDS: MENTHOL/ZINC OXIDE OINT 71 GM JAR TOP SCH (09:22)
[2020-06-13] MEDS: MIRTAZAPINE 15 MG TABLET PO SCH (20:26)
[2020-06-14] MEDS: PIPERACILLIN/TAZOBACTAM 3,375 MG in SODIUM CHLORIDE 0.9% 100 ML IV SCH ×3 (05:20→20:49)
[2020-06-14 06:37] LABS: Basophils # 0.1 10*3/uL (0.0-0.2); Basophils % 0.6 % (0.0-0.8); Eosinophils # 0.1 10*3/uL (0.0-0.87); Eosinophils % 1.3 % (0.00-10.9); Hematocrit 34.6 VOL% (42.0-52.0); Immature Granulocytes % 1.7 %; Immature Granulocytes Absolute 0.14 #; Lymphocytes # 1.2 10*3/uL (1.4-4.0); Lymphocytes % 14.4 % (21.2-54.2); Mean Corpuscular HGB Conc 31.8 GM/DL (32-36); Mean Corpuscular Volume 93.8 FL (87-102); Mean Platelet Volume 10.7 FL (9.6-12.0); Monocytes % 12.4 % (1.7-12.7); Neutrophils % 69.6 % (38.7-73.9); Platelet Count 153 T/CUMM (130-400); Red Blood Count 3.69 MC/CUMM (3.8-5.5); Red Cell Distribution Width 15.7 % (9.3-17.3); White Blood Count 8.4 T/CUMM (4-12)
[2020-06-14 07:02] LABS: Calcium 8.5 MG/DL (8.5-10.1)
[2020-06-14] MEDS: POLYETHYLENE GLYCOL POWDER 17 GM PACK PO SCH (08:35)
[2020-06-14] MEDS: ESCITALOPRAM 10 MG TABLET PO SCH (08:35)
[2020-06-14] MEDS: CHOLECALCIFEROL 1,000 UNIT TABLET PO SCH (08:35)
[2020-06-14] MEDS: MENTHOL/ZINC OXIDE OINT 71 GM JAR TOP SCH (08:35)
[2020-06-14] MEDS ORDERED: POTASSIUM CHLORIDE 20 MEQ PACK PO ONE (08:46)
[2020-06-14] MEDS: MIRTAZAPINE 15 MG TABLET PO SCH (20:48)
[2020-06-15] MEDS: PIPERACILLIN/TAZOBACTAM 3,375 MG in SODIUM CHLORIDE 0.9% 100 ML IV SCH ×3 (05:00→20:51)
[2020-06-15 07:20] LABS: Calcium 8.3 MG/DL (8.5-10.1); Osmolality,Calculated 282.3 MOS/KG (273-304)
[2020-06-15] MEDS ORDERED: POTASSIUM CHLORIDE 20 MEQ TABLET PO ONE (08:02)
[2020-06-15] MEDS ORDERED: POTASSIUM CHLORIDE 20 MEQ PACK PO ONE (08:33)
[2020-06-15] MEDS: MENTHOL/ZINC OXIDE OINT 71 GM JAR TOP SCH (08:45)
[2020-06-15] MEDS: POLYETHYLENE GLYCOL POWDER 17 GM PACK PO SCH (08:45)
[2020-06-15] MEDS: CHOLECALCIFEROL 1,000 UNIT TABLET PO SCH (08:45)
[2020-06-15] MEDS: ESCITALOPRAM 10 MG TABLET PO SCH (08:45)
[2020-06-15] MEDS: MIRTAZAPINE 15 MG TABLET PO SCH (20:50)
[2020-06-16] MEDS: PIPERACILLIN/TAZOBACTAM 3,375 MG in SODIUM CHLORIDE 0.9% 100 ML IV SCH (05:10)
[2020-06-16 06:37] LABS: Calcium 8.5 MG/DL (8.5-10.1); Osmolality,Calculated 281.3 MOS/KG (273-304)
[2020-06-16] MEDS ORDERED: POTASSIUM CHLORIDE 20 MEQ TABLET PO ONE (07:41)
[2020-06-16 09:23] LABS: Basophils # 0.1 10*3/uL (0.0-0.2); Basophils % 0.5 % (0.0-0.8); Eosinophils # 0.1 10*3/uL (0.0-0.87); Eosinophils % 0.4 % (0.00-10.9); Hematocrit 35.4 VOL% (42.0-52.0); Hemoglobin 11.2 GM/DL (14.0-18.0); Immature Granulocytes % 1.1 %; Immature Granulocytes Absolute 0.14 #; Lymphocytes # 1.4 10*3/uL (1.4-4.0); Lymphocytes % 10.8 % (21.2-54.2); Mean Corpuscular HGB Conc 31.6 GM/DL (32-36); Mean Corpuscular Volume 92.2 FL (87-102); Mean Platelet Volume 11.5 FL (9.6-12.0); Monocytes % 6.6 % (1.7-12.7); Neutrophils % 80.6 % (38.7-73.9); Platelet Count 224 T/CUMM (130-400); Red Blood Count 3.84 MC/CUMM (3.8-5.5); Red Cell Distribution Width 15.7 % (9.3-17.3); White Blood Count 13.1 T/CUMM (4-12)
[2020-06-16] MEDS: POTASSIUM CHLORIDE RIDER 10 MEQ in PREMIX 1 EACH IV SCH ×8 (09:26→23:24)
[2020-06-16] MEDS: CHOLECALCIFEROL 1,000 UNIT TABLET PO SCH (09:26)
[2020-06-16] MEDS: ESCITALOPRAM 10 MG TABLET PO SCH (09:27)
[2020-06-16] MEDS: MENTHOL/ZINC OXIDE OINT 71 GM JAR TOP SCH (09:27)
[2020-06-16] MEDS ORDERED: POTASSIUM CHLORIDE RIDER 10 MEQ in PREMIX 1 EACH IV SCH (09:30)
[2020-06-16] MEDS: POLYETHYLENE GLYCOL POWDER 17 GM PACK PO SCH (10:14)
[2020-06-16] MEDS ORDERED: VANCOMYCIN INJ 1,000 MG in SODIUM CHLORIDE 0.9% 250 ML IV SCH (10:30)
[2020-06-16] MEDS: VANCOMYCIN INJ 1,500 MG in SODIUM CHLORIDE 0.9% 500 ML IV SCH ×2 (11:58→23:25)
[2020-06-16] MEDS ORDERED: LEVOFLOXACIN INJ 750 MG in PREMIX 1 EACH IV SCH (14:30)
[2020-06-16] MEDS ORDERED: cefTRIAXone 1,000 MG in SYRINGE 1 EACH IV SCH (14:30)
[2020-06-16] MEDS ORDERED: POTASSIUM CHLORIDE 20 MEQ PACK PO ONE (16:49)
[2020-06-16] MEDS: MIRTAZAPINE 15 MG TABLET PO SCH (20:25)
[2020-06-17 06:08] LABS: Basophils # 0.1 10*3/uL (0.0-0.2); Basophils % 0.5 % (0.0-0.8); Eosinophils # 0.1 10*3/uL (0.0-0.87); Eosinophils % 0.5 % (0.00-10.9); Hematocrit 38.4 VOL% (42.0-52.0); Hemoglobin 11.7 GM/DL (14.0-18.0); Immature Granulocytes % 1.3 %; Lymphocytes # 1.8 10*3/uL (1.4-4.0); Lymphocytes % 11.5 % (21.2-54.2); Mean Corpuscular HGB Conc 30.5 GM/DL (32-36); Mean Corpuscular Volume 94.8 FL (87-102); Mean Platelet Volume 11.1 FL (9.6-12.0); Monocytes % 5.9 % (1.7-12.7); Neutrophils % 80.3 % (38.7-73.9); Platelet Count 315 T/CUMM (130-400); Red Blood Count 4.05 MC/CUMM (3.8-5.5); Red Cell Distribution Width 15.5 % (9.3-17.3); White Blood Count 15.6 T/CUMM (4-12)
[2020-06-17 06:26] LABS: Calcium 8.8 MG/DL (8.5-10.1); Osmolality,Calculated 290.8 MOS/KG (273-304)
[2020-06-17] MEDS: ESCITALOPRAM 10 MG TABLET PO SCH (08:59)
[2020-06-17] MEDS: CHOLECALCIFEROL 1,000 UNIT TABLET PO SCH (08:59)
[2020-06-17] MEDS: MENTHOL/ZINC OXIDE OINT 71 GM JAR TOP SCH (09:00)
[2020-06-17] MEDS: POLYETHYLENE GLYCOL POWDER 17 GM PACK PO SCH (09:00)
[2020-06-17] MEDS ORDERED: POTASSIUM CHLORIDE RIDER 10 MEQ in PREMIX 1 EACH IV ONE (10:30)
[2020-06-17] MEDS ORDERED: POTASSIUM CHLORIDE INJ 50 MEQ in SODIUM CHLORIDE 0.9% 500 ML IV ONE (12:00)
[2020-06-17] MEDS ORDERED: TUBERCULIN SKIN TEST 0.1 ML SYRINGE INTRADERM ONE (15:04)
[2020-06-17] MEDS: METOCLOPRAMIDE 10 MG/2 ML VIAL IV SCH ×2 (15:48→22:11)
[2020-06-17 16:47] LABS: Bacteria,Urine Occasional /HPF (Few); Bilirubin,Urine Negative (Negative); Blood, Urine Large mg/dL (Negative); Glucose,Urine (UA) Negative (Negative); Ketones,Urine Negative (Negative); Mucus,Urine Few /LPF (Occasional); Nitrite,Urine Negative (Negative); Protein,Urine 100 MG/DL; RBC,Urine 281 /HPF (0-4); Squamous Epithelial Cell,Urine Occasional /HPF (0-10); Urine Appearance CLOUDY (Clear); Urine Color Yellow (Yellow); Urine Specific Gravity 1.019 (1.001-1.035); Urine Urobilinogen < 2.0 EU/DL (0.2-1.0); WBC,Urine 17 /HPF (0-6)
[2020-06-17] MEDS: MIRTAZAPINE 15 MG TABLET PO SCH (22:12)
[2020-06-17] MEDS: POTASSIUM CHLORIDE 20 MEQ/15 ML UDCUP PO SCH (22:12)
[2020-06-17] MEDS: ALBUTEROL/IPRATROPIUM 3 ML NEB RESP TX SCH (22:25)
[2020-06-18] MEDS: ALBUTEROL/IPRATROPIUM 3 ML NEB RESP TX SCH ×6 (02:00→23:53)
[2020-06-18] MEDS: METOCLOPRAMIDE 10 MG/2 ML VIAL IV SCH (04:18)
[2020-06-18 06:07] LABS: Basophils # 0.1 10*3/uL (0.0-0.2); Basophils % 0.4 % (0.0-0.8); Eosinophils % 0.1 % (0.00-10.9); Hematocrit 37.1 VOL% (42.0-52.0); Hemoglobin 11.2 GM/DL (14.0-18.0); Immature Granulocytes % 0.6 %; Immature Granulocytes Absolute 0.08 #; Lymphocytes # 0.9 10*3/uL (1.4-4.0); Lymphocytes % 6.3 % (21.2-54.2); Mean Corpuscular HGB Conc 30.2 GM/DL (32-36); Mean Corpuscular Volume 97.4 FL (87-102); Mean Platelet Volume 11.4 FL (9.6-12.0); Monocytes % 6.3 % (1.7-12.7); Neutrophils % 86.3 % (38.7-73.9); Platelet Count 329 T/CUMM (130-400); Red Blood Count 3.81 MC/CUMM (3.8-5.5); Red Cell Distribution Width 15.6 % (9.3-17.3); White Blood Count 13.8 T/CUMM (4-12)
[2020-06-18 06:42] LABS: Osmolality,Calculated 300.4 MOS/KG (273-304)
[2020-06-18] MEDS ORDERED: POTASSIUM CHLORIDE 20 MEQ PACK PO ONE (07:49)
[2020-06-18] MEDS: POLYETHYLENE GLYCOL POWDER 17 GM PACK PO SCH (08:53)
[2020-06-18] MEDS: POTASSIUM CHLORIDE 20 MEQ/15 ML UDCUP PO SCH ×2 (08:54→21:45)
[2020-06-18] MEDS: CHOLECALCIFEROL 1,000 UNIT TABLET PO SCH (08:54)
[2020-06-18] MEDS: MENTHOL/ZINC OXIDE OINT 71 GM JAR TOP SCH (08:56)
[2020-06-18] MEDS: ERYTHROMYCIN INJ 250 MG in SODIUM CHLORIDE 0.9% 100 ML IV SCH ×2 (10:29→18:22)
[2020-06-18] MEDS: MIRTAZAPINE 15 MG TABLET PO SCH (21:45)
[2020-06-19] MEDS: ERYTHROMYCIN INJ 250 MG in SODIUM CHLORIDE 0.9% 100 ML IV SCH ×2 (00:32→09:02)
[2020-06-19] MEDS: ALBUTEROL/IPRATROPIUM 3 ML NEB RESP TX SCH ×3 (03:30→11:15)
[2020-06-19] MEDS ORDERED: SODIUM CHLORIDE 0.9% 500 ML IV SCH (07:00)
[2020-06-19 07:42] LABS: Calcium 9.2 MG/DL (8.5-10.1); Osmolality,Calculated 305.1 MOS/KG (273-304)
[2020-06-19 07:46] LABS: Basophils % 0.3 % (0.0-0.8); Hematocrit 41.3 VOL% (42.0-52.0); Immature Granulocytes Absolute 0.11 #; Lymphocytes # 0.6 10*3/uL (1.4-4.0); Lymphocytes % 5.5 % (21.2-54.2); Mean Corpuscular HGB Conc 29.3 GM/DL (32-36); Mean Corpuscular Volume 100.2 FL (87-102); Mean Platelet Volume 11.2 FL (9.6-12.0); Monocytes % 4.8 % (1.7-12.7); Neutrophils % 88.4 % (38.7-73.9); Platelet Count 420 T/CUMM (130-400); Red Blood Count 4.12 MC/CUMM (3.8-5.5); Red Cell Distribution Width 15.9 % (9.3-17.3); White Blood Count 10.6 T/CUMM (4-12)
[2020-06-19 07:47] LABS: Hemoglobin 12.1 GM/DL (14.0-18.0)
[2020-06-19] MEDS ORDERED: DEXTROSE 5% 1,000 ML IV SCH (08:00)
[2020-06-19] MEDS: MENTHOL/ZINC OXIDE OINT 71 GM JAR TOP SCH (09:03)
[2020-06-19 11:59] VITALS: BP 149/62
[2020-06-19] MEDS: CHOLECALCIFEROL 1,000 UNIT TABLET PO SCH (12:21)
[2020-06-19] MEDS: POLYETHYLENE GLYCOL POWDER 17 GM PACK PO SCH (12:21)
[2020-06-19] MEDS: POTASSIUM CHLORIDE 20 MEQ/15 ML UDCUP PO SCH (12:21)
[2020-06-19] MEDS ORDERED: LORazepam 2 MG/1 ML VIAL IV PRN (13:55)
[2020-06-19] MEDS ORDERED: MORPHINE 4 MG/1 ML VIAL IV PRN (13:55)
== END 2020-06-19 20:40 | disposition expired | DRG 193 ==
LOC: EDBD → EDUNIT# → N.ED 08:16 → N.EDINP 11:32 → N.5E 12:55
PROVIDERS: ADMIT Internal Medicine; ATTEND Internal Medicine